=== PATIENT | female | born 1990 | race Caucasian/White ===

== ENCOUNTER 2020-12-10 13:10 | Outpatient (CLI) | payer MEDICAID, SELFPAY ==
[2020-12-10 13:27] VITALS: RESP 17
[2020-12-10 13:34] VITALS: TEMP 36.4
[2020-12-10 13:35] VITALS: BP 114/73; PULSE 102
[2020-12-10 13:50] VITALS: BP 112/75; PULSE 103
[2020-12-10 13:59] VITALS: BMI 26.7
== END 2020-12-10 14:09 | disposition home or self-care (01) ==
LOC: OPOB 13:24 → OBGYN 13:25
PROVIDERS: PCP Family Medicine; Visit Provider Family Medicine
DX: O26.899 Other specified pregnancy related conditions, unspecified trimester (principal); Z3A.00 Weeks of gestation of pregnancy not specified; R00.0 Tachycardia, unspecified; R42 Dizziness and giddiness
CPT/HCPCS: 59025; 99211

== ENCOUNTER 2020-12-19 08:00 | Outpatient (CLI) | payer MEDICAID, SELFPAY ==
[2020-12-19 08:38] VITALS: BP 109/65; PULSE 82
[2020-12-19 08:48] VITALS: RESP 16; TEMP 36.5
[2020-12-19 08:54] VITALS: BP 125/62; PULSE 86
[2020-12-19 09:21] VITALS: BMI 27.3
[2020-12-19 10:16] VITALS: BP 118/66; PULSE 91
[2020-12-19 11:14] VITALS: BP 134/72; PULSE 97
== END 2020-12-19 12:00 | disposition home or self-care (01) ==
LOC: OPOB 08:10 → OBGYN 08:11
PROVIDERS: PCP Family Medicine; Visit Provider Family Medicine
DX: O26.899 Other specified pregnancy related conditions, unspecified trimester (principal); Z3A.00 Weeks of gestation of pregnancy not specified; R10.9 Unspecified abdominal pain
CPT/HCPCS: 99211

== ENCOUNTER 2020-12-25 14:51 | Inpatient (IN) | payer BC, MEDICAID, SELFPAY ==
[2020-12-25] VITALS (27 sets, daily range): BP systolic 101–131; BP diastolic 55–83; PULSE 80–109; RESP 17–18; TEMP 36.4–36.9; BMI 27.3
[2020-12-25 15:08] LABS: Basophils # 0.1 10^3/uL (0.0-0.1); Basophils % 0.5 %; Eosinophils % 0.2 %; Hematocrit 40.9 % (37.0-47.0); Lymphocytes # 2.1 10^3/uL (0.8-4.8); Mean Corpuscular HGB Conc 34.2 g/dL (30.0-36.0); Mean Corpuscular Hemoglobin 30.6 pg (28.0-34.0); Mean Corpuscular Volume 89.5 fl (81-99); Mean Platelet Volume 11.1 fL (7.4-10.4); Monocytes # 0.8 10^3/uL (0.2-0.9); Monocytes % 6.4 %; Neutrophils # 9.88 10^3/uL (1.8-7.7); Neutrophils % 75.9 %; Nucleated Red Blood Cells % 0 %; Platelet Count 254 10^3/cmm (130-400); Red Blood Count 4.57 10^6/uL (4.1-5.3); Red Cell Distribution Width 12.8 % (12.1-15.1)
[2020-12-25] MEDS: dextrose 5%-lactated ringers 1,000 ML 125 ML IV (17:27)
[2020-12-25] MEDS: oxytocin 30 UNIT/500 ML BAG 600 UNIT IV (18:57)
[2020-12-25] MEDS: lidocaine 2% INJ 20 mL INJECTION (18:58)
[2020-12-25] MEDS: fentaNYL 50 mcg/mL INJ 2mL 25 MCG IVP (19:14)
--- NOTE | 2020-12-25 19:48 | PM.OPHPUD ---
Labor & Delivery H&P Update Date of Procedure: December 25, 2020 Date H&P Performed: 12/25/20 H&P update information: I have reviewed H&P completed within last 30 days Admission Diagnosis: Preop diagnosis: 38-week 4 para 3-0-0-3 Related Problem List Diagnoses (1) 38 weeks gestation of : (2) Active labor:
--- NOTE | 2020-12-25 19:52 | PM.DELIVERY ---
Delivery Note: Date of delivery: December 25, 2020 Pre-Delivery Course: The patient is a 38-week 4 presenting in active labor. She is having contractions about every 5 minutes. Her cervix was found to be 5 cm dilated. She was GBS negative. Covid unknown. Glucose screen negative. Remainder of her labs are within normal limits. Delivery: DELIVERY: The patient progressed to complete without difficulty. She delivered a female with a weight of 6 pounds 15 ounces with Apgars of 9, 9. The baby was delivered from the SEVERINO position and placed on the mother's abdomen. The cord was then clamped and cut. There was a nuchal cord/body cord x1. There was no meconium. The placenta and 3 vessel cord were delivered intact shortly thereafter. The perineum and vaginal vault were carefully examined. A posterior second-degree tear was noted. 1% lidocaine was used to anesthetize the area. 3-0 Vicryl was then used to repair the laceration in the usual fashion. Both the mother and the baby were in stable condition. A&P Assessment and plan (1) 38 weeks gestation of : I anticipate routine care. If all goes well, she will be discharged tomorrow evening. Status: Acute (2) Active labor: Status: Acute Coding Level of Care Code Acute Interactive Marketing Strategist for Emelyn Schmidt Diagnoses 38 weeks gestation of Z3A.38 Active labor
[2020-12-25] MEDS: ibuprofen 800 mg tablet PO (20:26)
[2020-12-26] VITALS (11 sets, daily range): BP systolic 94–128; BP diastolic 50–86; PULSE 67–99; RESP 16; TEMP 36.6–36.8
[2020-12-26] MEDS: HYDROcodone-acetaminophen 5-325 mg Tablet PO (02:54)
[2020-12-26] MEDS: ibuprofen 800 mg tablet PO ×3 (09:00→14:30)
[2020-12-26] MEDS: prenatal vitamin Capsule 1 CAP PO (09:58)
[2020-12-26] MEDS: docusate sodium 100 mg Capsule PO (09:58)
[2020-12-26 10:32] LABS: Hematocrit 36.1 % (37.0-47.0); Hemoglobin 12.2 g/dL (11.5-15.3); Mean Corpuscular HGB Conc 33.8 g/dL (30.0-36.0); Mean Corpuscular Hemoglobin 30.9 pg (28.0-34.0); Mean Corpuscular Volume 91.4 fl (81-99); Mean Platelet Volume 11.1 fL (7.4-10.4); Platelet Count 220 10^3/cmm (130-400); Red Blood Count 3.95 10^6/uL (4.1-5.3); Red Cell Distribution Width 12.8 % (12.1-15.1); White Blood Count 12.3 10^3/uL (4.0-10.0)
--- NOTE | 2020-12-26 12:03 | P.DS_ITS ---
Discharge Providers COOLER DELIVERER Date of Admission: 12/25/20 14:51 Date of Discharge: 12/26/20 Attending Provider at Admission: Fortino Cox MD Attending Provider at Discharge: Fortino oCx MD Primary Care Provider: Fortino Cox MD Diagnoses at Discharge Discharge Diagnosis (1) 38 weeks gestation of : Status: Acute (2) Active labor: Status: Acute Reason for Visit Reason for Visit: Abdominal pain Hospital Course Hospital Course The patient is a 30-year-old 4 para 3-0-0-3 female at 38 weeks estimated gestational age who presented to the hospital in active labor. An amniotomy was performed. She then progressed to complete and had an unremarkable delivery of a healthy-appearing female. There are no complications during the delivery. Her course was also unremarkable. Her bleeding was within normal limits. She elected to bottlefeed her baby. Her pain was well controlled. There were no complications or issues. Information Peripartum Data: Infant Delivery Method: Vaginal Physical Exam Narrative: EXAM NARRATIVE: The patient is alert. She appears comfortable. Her heart has a regular rate and rhythm with no murmurs appreciated. Lungs are clear to auscultation bilaterally. Her fundus is firm and below the umbilicus. Discharge Data Data Completed and Pending: Labs from last 24 hours 12/26/20 12/25/20 10:19 14:42 WBC 12.3 H 13.0 H RBC 3.95 L 4.57 Hgb 12.2 14.0 Hct 36.1 L 40.9 MCV 91.4 89.5 MCH 30.9 30.6 MCHC 33.8 34.2 RDW 12.8 12.8 Plt Count 220 254 MPV 11.1 H 11.1 H Neut % (Auto) 75.9 Lymph % (Auto) 16.0 [place] % (Auto) 6.4 Eos % (Auto) 0.2 Baso % (Auto) 0.5 Neut # (Auto) 9.88 H Lymph # (Auto) 2.1 [place] # (Auto) 0.8 Eos # (Auto) 0.0 Baso # (Auto) 0.1 Nucleated RBC % (a uto) 0 Nucleated RBCs # 0.0 Vitals: Last Vital Signs Temp 98.1 F 12/26/20 04:00 Pulse 75 12/26/20 09:59 Resp 18 12/25/20 19:14 BP 103/58 12/26/20 09:59 Discharge Plan Discharge Patient Disposition: Home Condition: Stable Prescriptions: New ibuprofen 800 mg Tablet 800 mg PO TID Qty: 45 RF: 0 Discharge Orders: Discharge Order (Routine); Ordered 12/26/20 Ordered By: Fortino Cox Referrals: Fortino Cox MD [Primary Care Provider] - 6 Weeks Discharge Diet: Usual diet Discharge Activity: Limit activity as instructed Patient Instructions: Opioid Safety Discharge Attestations COOLER DELIVERER Time Spent in Discharge Care*: less than 30 min Specific Discharge Activities: Specific discharge activities: educating patient and educating and/or supporting family/caregiver Coding Level of Care Code Acute High School Math Teacher for Chg Fwd Diagnoses 38 weeks gestation of Z3A.38 Active labor
== END 2020-12-26 19:40 | disposition home or self-care (01) | DRG 807 ==
LOC: OPOB 14:54 → OBGYN 14:54
PROVIDERS: Admitting Provider Family Medicine; PCP Family Medicine; Visit Provider Family Medicine
DX: O69.81X0 Labor and delivery complicated by cord around neck, without compression, not applicable or unspecified (principal); Z37.0 Single live birth; O70.1 Second degree perineal laceration during delivery; Z3A.38 38 weeks gestation of pregnancy
CPT/HCPCS: 12345; 36415; 59025; 59409; 85025; 85027; 99211; J3010

== ENCOUNTER 2023-09-29 16:56 | Emergency (ER) | payer BC, MEDICAID, SELFPAY ==
[2023-09-29 17:11] VITALS: BP 110/71; PULSE 81; RESP 17; TEMP 36.7; O2SAT 97; BMI 21.9
[2023-09-29 17:33] LABS: Add Urine Microscopic? NO; Charge for UA Resulting for Rev
[2023-09-29 17:35] LABS: Basophils # 0.1 10^3/uL (0.0-0.1); Basophils % 0.7 %; Eosinophils # 0.1 10^3/uL (0.0-0.8); Eosinophils % 1.4 %; Hematocrit 40.9 % (36-47); Lymphocytes # 2.9 10^3/uL (0.8-4.8); Mean Corpuscular Hemoglobin 30.6 pg (27-33); Mean Corpuscular Volume 90.1 fl (85-98); Mean Platelet Volume 10.5 fL (7.4-10.4); Monocytes # 0.5 10^3/uL (0.2-0.9); Monocytes % 6.2 %; Neutrophils # 5.11 10^3/uL (1.8-7.7); Neutrophils % 58.5 %; Nucleated Red Blood Cells % 0 %; Platelet Count 259 10^3/cmm (157-399); Red Blood Count 4.54 10^6/uL (3.85-5.65); Red Cell Distribution Width 11.9 % (12.1-15.1); White Blood Count 8.73 10^3/uL (3.29-11.43)
--- NOTE | 2023-09-29 17:37 | ED_ITS ---
HPI - Abdominal Pain 2 General: Chief Complaint: Abdominal Pain Stated Complaint: abd pain, umbillical hernia Time Seen by Provider: 09/29/23 17:21 Source: patient Mode of arrival: ambulatory Limitations: no limitations History of Present Illness: 33-year-old female states she had an umb ilical hernia for 5 years states that she is post to have it repaired a year ago but did not states that it has been stuck out recently and has been causing her some increased pain. She denies any vomiting denies any fevers rates her pain a 3 out of 10 currently. Associated Symptoms: Denies chills, diarrhea, fever(s), nausea and vomiting Review of Systems 2 Const: Denies: fever(s), chills, body aches or change in appetite ENMT: Denies: throat pain or dental pain Card: Denies: chest pain Resp: Denies: dyspnea GI: Reports: abdominal pain; Denies: nausea, vomiting or diarrhea Musc: Denies: neck pain or back pain Skin/Breast: Denies: rash Neuro: Denies: headache(s) Physical Exam 2 Const: COMMON NORMALS: no acute distress, patient oriented x3 and healthy appearing HENMT: COMMON NORMALS: normocephalic and atraumatic HEAD & SCALP: n ormocephalic and atraumatic Neck/C-Spine: COMMON NORMALS: full ROM and supple Chest: COMMONS NORMALS: normal inspection of the chest Resp: COMMON NORMALS: normal respiratory effort GI: COMMON NORMALS: Soft to palpation and no masses PALPATION: Yes Soft to palpation OTHER: Umbilical hernia noted with some tenderness Extremity: COMMON NORMALS: normal to inspection and full ROM Neuro: COMMON NORMALS: patient oriented x3, moves all extremities and no focal motor deficits Psych: COMMON NORMALS: mental status grossly normal, Normal thought process present and cooperative THOUGHT PROCESS: Normal thought process present Skin: COMMON NORMALS: no rashes or lesions noted and no wounds GENERAL SKIN EXAM: no rashes or lesions noted Course 2 Vital Signs: Vital signs: Vital Signs Temperature 98.1 F 09/29/23 17:11 Pulse Rate 81 09/29/23 17:11 Respiratory Rate 17 09/29/23 17:11 Blood Pressure 110/71 09/29/23 17:11 Pulse Oximetry 97 09/29/23 17:11 Oxygen Delivery Me thod Room Air 09/29/23 17:11 MDM - Abdominal Pain Medical Decision Making Patient presents with umbilical hernia was able to reduce it in the ER without any difficulty she has no signs of strangulation she stable for discharge she is seeing Dr. Miller in the past and wants to follow-up with him I informed her she is to follow-up with him return if worsening she understands agrees to plan. Medical Records I reviewed the patient's medical records. Lab Data I reviewed the patient's lab results. 09/29/23 17:23 09/29/23 17:23 Labs/Radiology: Laboratory Results WBC 8.73 10^3/uL (3.29-11.43) 09/29/23 17: RBC 4.54 10^6/uL (3.85-5.65) 09/29/23 17: Hgb 13.90 g/dL (11.27-16.99) 09/29/23 17: Hct 40.9 % (36-47) 09/29/23 17: MCV 90.1 fl (85-98) 09/29/23 17:23 MCH 30.6 pg (27-33) 09/29/23 17: MCHC 34.0 g/dL (30-55) 09/29/23 17: RDW 11.9 % (12.1-15.1) L 09/29/23 17: Plt Count 259 10^3/cmm (157-399) 09/29/23 17:23 MPV 10.5 fL (7.4-10.4) H 09/29/23 17: Neut % (Auto) 58.5 % 09/29/23 17:23 Lymph % (Auto) 33.0 % 09/29/23 17:23 [place] % (Auto) 6.2 % 09/29/23 17:23 Eos % (Auto) 1.4 % 09/29/23 17: Baso % (Auto) 0.7 % 09/29/23 17: Neut # (Auto) 5.11 10^3/uL (1.8-7.7) 09/29/23 17: Lymph # (Auto) 2.9 10^3/uL (0.8-4.8) 09/29/23 17:23 [place] # (Auto) 0.5 10^3/uL (0.2-0.9) 09/29/23 17:23 Eos # (Auto) 0.1 10^3/uL (0.0-0.8) 09/29/23 17:23 Baso # (Auto) 0.1 10^3/uL (0.0-0.1) 09/29/23 17:23 Nucleated RBC % (auto) 0 % 09/29/23 17:23 Nucleated RBCs # 0.0 /100WBC 09/29/23 17:23 Sodium 141 mmol/L (136-145) 09/29/23 17:23 Potassium 4.0 mmol/L (3.5-5.1) 09/29/23 17:23 Chloride 103 mmol/L (98-107) 09/29/23 17:23 Carbon Dioxide 29 mmol/L (22-29) 09/29/23 17:23 Anion Gap 13.0 (5-19) 09/29/23 17:23 BUN 9 mg/dL (6-20) 09/29/23 17:23 Creatinine 0.8 mg/dL (0.5-0.9) 09/29/23 17:23 GFR Calculation 83.1 mL/min (90-130) L 09/29/23 17:23 Glucose 105 mg/dL (65-115) 09/29/23 17:23 Calculated Osmolality 291 mOsm/kg (285-295) 09/29/23 17:23 Calcium 8.8 mg/dL (8.5-10.5) 09/29/23 17:23 Total Bilirubin 0.8 mg/dL (0.15-1.2) 09/29/23 17:23 AST 23 U/L (0-32) 09/29/23 17:23 ALT 24 U/L (0-33) 09/29/23 17:23 Alkaline Phosphatase 82 U/L (35-105) 09/29/23 17:23 Total Protein 7.5 g/dL (6.6-8.7) 09/29/23 17:23 Albumin 5.0 g/dL (3.5-5.2) 09/29/23 17:23 Globulin 2.5 g/dL (1.3-4.6) 09/29/23 17:23 Lipase 34 U/L (13-60) 09/29/23 17:23 HCG, Qual Negative (Negative) 09/29/23 17:23 Urine Color Yellow (Yellow) 09/29/23 17:00 Urine Appearance Clear (CLEAR) 09/29/23 17:00 Urine pH 6 (5-7) 09/29/23 17:00 Ur Specific [place] 1.010 (1.005-1.030) 09/29/23 17:00 Urine Protein Neg (Negative) 09/29/23 17:00 Urine Glucose (UA) Norm (Normal) 09/29/23 17:00 Urine Ketones Negative (Negative) 09/29/23 17:00 Urine Blood Neg (Negative) 09/29/23 17:00 Urine Nitrate Negative (Negative) 09/29/23 17:00 Urine Bilirubin Neg (Negative) 09/29/23 17:00 Urine Urobilinogen 1 mg/dL (Negative) H 09/29/23 17:00 Ur Leukocyte Esterase Negative (Negative) 09/29/23 17:00 No radiology studies performed this visit Discharge Plan Discharge Patient Disposition: Home Clinical Impression: Hernia, umbilical Condition: Stable Prescriptions: No Action ibuprofen 800 mg Tablet 800 mg PO TID Qty: 45 0RF Discharge Orders: Discharge ED (Routine); Ordered 09/29/23 Ordered By: Marianela Arriaga Referrals: Fortino Cox MD [Primary Care Provider] - 4-7 days Discharge Diet: Advance as tolerated Discharge Activity: Resume usual activity Patient Instructions: Umbilical Hernia (ED) Coding Level of Care Code ED Supervisor Shearing for Emelyn Schmidt
[2023-09-29 17:56] LABS: Alanine Aminotransferase 24 U/L (0-33); Alkaline Phosphatase 82 U/L (35-105); Aspartate Amino Transferase 23 U/L (0-32); Blood Urea Nitrogen 9 mg/dL (6-20); Calcium 8.8 mg/dL (8.5-10.5); Carbon Dioxide 29 mmol/L (22-29); Chloride 103 mmol/L (98-107); Creatinine Clr Calc Pharmacy 99.3882; Globulin 2.5 g/dL (1.3-4.6); Glomerular Filtration Rate 83.1 mL/min (90-130); Glucose 105 mg/dL (65-115); Lipase 34 U/L (13-60); Osmolality Calculated 291 mOsm/kg (285-295); Sodium 141 mmol/L (136-145); Total Bilirubin 0.8 mg/dL (0.15-1.2); Total Protein 7.5 g/dL (6.6-8.7)
[2023-09-29 18:06] LABS: HCG, Serum Qual Negative (Negative)
[2023-09-29 18:14] LABS: Urine Appearance Clear (CLEAR); Urine Color Yellow (Yellow)
[2023-09-29 18:15] LABS: Bilirubin Urine Neg (Negative); Blood Urine Neg (Negative); Glucose Urine UA Norm (Normal); Ketones Urine Negative (Negative); Leukocyte Esterase Urine Negative (Negative); Nitrate Urine Negative (Negative); Protein Urine Neg (Negative); Urobilinogen Urine 1 mg/dL (Negative); pH Urine 6 (5-7)
== END 2023-09-29 18:38 | disposition home or self-care (01) ==
PROVIDERS: Emergency Provider Emergency Medicine; PCP Family Medicine
DX: K42.9 Umbilical hernia without obstruction or gangrene (principal)
CPT/HCPCS: 36415; 80053; 81003; 83690; 84703; 85025; 99283